=== PATIENT | male | born 2000 | race Caucasian/White ===

== ENCOUNTER 2020-11-28 00:14 | Emergency (ER) | payer OTHER ==
[~2020-11-28] VITALS: Ht 177.8 cm; Wt 70.3 kg
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
[2020-11-28] MEDS ORDERED: IBUPROFEN 600 MG TABLET PO ONE (00:30)
[2020-11-28] MEDS ORDERED: IBUP-1953 PO (00:35)
[2020-11-28] MEDS ORDERED: IBUPROFEN 600 MG TABLET ONE (00:35)
[2020-11-28 01:21] LABS: *BILIRUBIN,URIN NEGATIVE (NEGATIVE); *BLOOD, URINE NEGATIVE (NEGATIVE); *CLARITY,URINE CLEAR (CLEAR); *COLOR,URINE YELLOW (YELLOW); *KETONES,URINE 1+ (NEGATIVE); *UROBILINOGEN,URINE 0.2 E.U./dl (NORMAL); LEUKOCYTE ESTERASE ,URINE NEGATIVE (NEGATIVE); NITRITE, URINE NEGATIVE (NEGATIVE); PH,URINE 5.5 (5.0-8.0); UGLUCOSE NEGATIVE (NEGATIVE)
[2020-11-28 01:27] LABS: BACTERIA,URINE NONE SEEN /HPF (NONE SEEN); MUCUS,URINE MODERATE /LPF (0-FEW); RBC,URINE NONE SEEN /HPF (0-3); SQUAMOUS EPITHELIAL CELL,UR FEW /HPF (NONE SEEN); WBC,URINE 0-3 /HPF (0-3)
--- NOTE | 2020-11-28 01:35 | NUR ---
Patient discharged to home in stable condition. Written and verbal after care instructions given. Patient verbalizes understanding of instructions. Stressed follow up or return to ER for worsening s/s.
[2020-11-28 01:50] VITALS: BP 128/80
== END 2020-11-28 01:35 | disposition home or self-care (01) ==
LOC: ER 00:20
DX: M25.512 Pain in left shoulder (principal); M54.5 Low back pain; M54.6 Pain in thoracic spine; V43.52XA Car driver injured in collision with other type car in traffic accident, initial encounter; Y92.411 Interstate highway as the place of occurrence of the external cause
CPT/HCPCS: 72072; 72110; 73030; A4663